=== PATIENT | male | born 1955 ===

== ENCOUNTER 2019-01-17 22:34 | Observation (INO) ==
[2019-01-18 01:14] LABS: Troponin I < 0.015 NG/ML (0.00-0.045)
[2019-01-18] MEDS ORDERED: ACETAMINOPHEN 325 MG TABLET PO PRN (02:25)
[2019-01-18] MEDS ORDERED: DEXTROSE 50% 25 GM/50 ML VIAL IV PRN (02:25)
[2019-01-18] MEDS ORDERED: DOCUSATE SODIUM 100 MG CAPSULE PO PRN (02:25)
[2019-01-18] MEDS ORDERED: ONDANSETRON 4 MG/2 ML VIAL IV PRN (02:25)
[2019-01-18] MEDS ORDERED: GLUCAGON 1 MG VIAL IM PRN (02:25)
[2019-01-18] MEDS ORDERED: MORPHINE 4 MG/1 ML VIAL IV PRN (02:25)
[2019-01-18] MEDS ORDERED: NITROGLYCERIN SL 0.4 MG TABLET SL PRN (02:27)
[2019-01-18 05:09] LABS: Basophils % 0.6 % (0.0-0.8); Eosinophils # 0.1 10*3/uL (0.0-0.87); Eosinophils % 1.3 % (0.00-10.9); Hematocrit 31.5 VOL% (42.0-52.0); Hemoglobin 10.8 GM/DL (14.0-18.0); Immature Granulocytes % 0.3 %; Immature Granulocytes Absolute 0.02 #; Lymphocytes # 1.4 10*3/uL (1.4-4.0); Lymphocytes % 21.4 % (21.2-54.2); Mean Corpuscular HGB Conc 34.3 GM/DL (32-36); Mean Corpuscular Volume 87.7 FL (87-102); Mean Platelet Volume 10.2 FL (9.6-12.0); Monocytes % 7.2 % (1.7-12.7); Neutrophils % 69.2 % (38.7-73.9); Platelet Count 268 T/CUMM (130-400); Red Blood Count 3.59 MC/CUMM (3.8-5.5); Red Cell Distribution Width 12.6 % (9.3-17.3); White Blood Count 6.7 T/CUMM (4-12)
[2019-01-18 05:47] LABS: Bilirubin,Total 0.8 MG/DL (0.2-1.0); Calcium 8.7 MG/DL (8.5-10.1); Osmolality,Calculated 283.5 MOS/KG (273-304); Thyroid Stimulating Hormone 0.601 uIU/ml (0.358-3.74); Total Protein 6.3 G/DL (6.4-8.3); VLDL CHOLESTEROL 18.8 MG/DL
[2019-01-18] MEDS ORDERED: LEVOTHYROXINE 50 MCG TABLET PO SCH (06:00)
[2019-01-18] MEDS ORDERED: INSULIN GLARGINE 100 UNIT/ML SUBCUT SCH (07:30)
[2019-01-18] MEDS ORDERED: METOPROLOL TARTRATE 25 MG TABLET PO SCH (07:30)
[2019-01-18] MEDS ORDERED: METOCLOPRAMIDE 10 MG TABLET PO SCH (07:30)
[2019-01-18] MEDS ORDERED: glyBURIDE 5 MG TABLET PO SCH (08:00)
[2019-01-18] MEDS ORDERED: PANTOPRAZOLE 40 MG TABLET PO SCH (09:00)
[2019-01-18] MEDS ORDERED: hydroCHLOROthiazide 12.5 MG CAPSULE PO SCH (09:00)
[2019-01-18] MEDS ORDERED: POTASSIUM CHLORIDE 10 MEQ TABLET PO SCH (09:00)
[2019-01-18] MEDS ORDERED: LISINOPRIL 20 MG TABLET PO SCH (09:00)
[2019-01-18] MEDS ORDERED: SPIRONOLACTONE 100 MG TABLET PO SCH (09:00)
[2019-01-18] MEDS ORDERED: ATORVASTATIN 20 MG TABLET PO SCH (09:00)
[2019-01-18] MEDS ORDERED: amLODIPine 5 MG TABLET PO SCH (09:00)
[2019-01-18] MEDS ORDERED: ASPIRIN CHEW 81 MG TABLET PO SCH (09:00)
[2019-01-18] MEDS ORDERED: ENOXAPARIN 40 MG/0.4 ML SYRINGE SUBCUT SCH (09:00)
[2019-01-18] MEDS ORDERED: TICAGRELOR 90 MG TABLET PO SCH (09:00)
[2019-01-18] MEDS: INSULIN REGULAR 100 UNIT/ML SUBCUT SCH ×2 (09:35→12:44)
[2019-01-18 12:32] VITALS: BP 111/74
== END 2019-01-18 16:28 | disposition home or self-care (01) ==
LOC: N.TELES
PROVIDERS: ADMIT Internal Medicine; ATTEND Internal Medicine Geriatric Medicine